=== PATIENT | female | born 1950 | race Caucasian/White ===

== ENCOUNTER 2019-10-28 08:11 | Day surgery (SDC) | payer MEDICARE, OTHER ==
[~2019-10-28] VITALS: Ht 165.1 cm; Wt 56.7 kg
[~2019-10-28 08:11] MED LIST: ALBUTEROL SULF8.5 GM INH; BUPROPION HCL100 M1 PO; BUPROPION HCL100 MG PO; CENTRUM SILVER1 EAC3 PO; CYCLOBENZAPRINE5 MG PO; FOSAMAX70 MG PO; IBUPROFEN200 M1 PO; LEVOTHYROXINE50 MCG PO; MELOXICAM7.5 MG PO; NAPROXEN500 MG PO; NORCO 5-325 TA1 EACH PO; OXYBUTYNIN CHLOR5 M1 PO; OXYBUTYNIN CHLOR5 MG PO; PERCOCET 5-3251 EACH PO; SUDAFED 12-HOU120 MG PO; TRAMADOL HCL50 MG PO; VALIUM5 MG PO; VITAMIN D32000 UNI1 PO
--- NOTE | 2019-10-28 10:28 | NUR ---
10/28/19 Tashia8 Dasia Oliveira 1024- PT ARRIVES TO PACU EASILY AROUSABLE TO VERBAL STIMULI. PT FALLS ASLEEP INSTANTLY WHEN NOT BEING TALKED TO. RESP EVEN AND UNLABORED. OXYGEN SAT HIGH 90'S TO 100% ON 3L VIA NC.
--- NOTE | 2019-10-29 08:11 | OR ---
[facility] [address], [place] [address] Signed DATE OF OPERATION: 10/28/2019 SURGEON: Loly Maradiaga MD PREOPERATIVE DIAGNOSES: 1. Personal history of hyperplastic polyps in 2013. 2. Diverticulosis. 3. Internal anal skin tags. 4. Maternal grandmother with colonic polyps. POSTOPERATIVE DIAGNOSES: 1. A 4 mm polyps at 8 and 28 cm. 2. Minimal sigmoid diverticulosis. 3. Multiple internal anal skin tags. PROCEDURE PERFORMED: Colonoscopy with hot biopsy. ESTIMATED BLOOD LOSS: None. INDICATIONS: Abena is a 69-year-old female, asked to see me for followup colonoscopy. Her maternal grandmother had colonic polyps removed. She had multiple hyperplastic polyps removed back in 2013. She is known to have diverticulosis along with several internal anal skin tags. She has no lower GI complaints. I gave Abena a pamphlet on colonoscopy. We looked at that together along with the risks and benefits. She also understands the need for IV conscious sedation. She had expressed understanding and wished to proceed. DESCRIPTION OF PROCEDURE: Abena was taken into our endoscopy suite and placed in the left lateral decubitus position. She was given IV sedation with 3 mg of Versed and 100 mcg of fentanyl. She also requested Xanax to be taken prior to coming to the hospital. A digital rectal exam was performed and I could feel the internal anal skin tags. She had good sphincter tone. No external hemorrhoids. The adult colonoscope was introduced and advanced all around into the cecum under direct visualization of camera. It took a little extra sedation and some abdominal compression, and rolling her on the table in the supine position or get the camera directly into the cecum itself. Her prep was good. We could easily see the appendiceal orifice and the ileocecal valve. The scope was slowly withdrawn. The above-mentioned polyps were easily removed with the help of hot biopsy Electronically Signed By: LOLY MARADIAGA MD 10/29/19 0811 PATIENT NAME: ABENA HOUSE OPERATIVE REPORT DATE OF : 46 REPORT #: [id number] PHYSICIAN: LOLY MARADIAGA MD PCP: DONNA HYATT MD REPORT IS CONFIDENTIAL AND NOT TO BE RELEASED WITHOUT AUTHORIZATION [facility] [address], [place] [address] Signed forceps. She does have sigmoid diverticulosis. They were minimal to moderate in size, minimal to moderate in number, and scattered about. Upon retroflexion of scope in the rectum, she does have several internal anal skin tags. After this, the gas was suctioned out and the colonoscope removed. Abena tolerated the procedure quite well. RECOMMENDATIONS: Abena will follow up in my office in 7 to 14 days to review her results. This may represent Abena's last colonoscopy. MD MIC Ferreira/ELIASL /[id number] cc: MD Loly Peterson MD Copies: DONNA HYATT MD, ANDREW L MD ~ Electronically Signed By: LOLY MARADIAGA MD 10/29/19 0811 PATIENT NAME: ABENA HOUSE OPERATIVE REPORT DATE OF : 46 REPORT #: [id number] PHYSICIAN: LOLY MARADIAGA MD PCP: DONNA HYATT MD REPORT IS CONFIDENTIAL AND NOT TO BE RELEASED WITHOUT AUTHORIZATION
--- NOTE | 2019-10-29 15:12 | PATH ---
[facility] [address], [place] [address] Signed SPECIMEN(S): A COLON POLYP AT 8 CM SPECIMEN(S): B COLON POLYP AT 28 CM SPECIMEN SOURCE: A. COLON POLYP AT 8 CM B. COLON POLYP AT 28 CM CLINICAL HISTORY: Chronic polyp. Post: Diverticulosis, polyps, internal skin tags. MICROSCOPIC DESCRIPTION: Histologic sections of all submitted blocks are examined by light microscopy. These findings, together with the gross examination, support the pathologic diagnosis. FINAL PATHOLOGIC DIAGNOSIS: A. Colon, polyp at 8 cm, polypectomy: - Hyperplastic polyp. - Negative for dysplasia or malignancy. B. Colon, polyp at 28 cm, polypectomy: - Fragments of colonic mucosa with focal hyperplastic mucosal changes. - Negative for dysplasia or malignancy. NAL:emb:C2NR GROSS DESCRIPTION: Two specimens are received in two containers, labeled "SG." A. The specimen, labeled "SG, colon polyp at 8 cm," is received in formalin and consists of a single 0.2 cm zarate-brown tissue fragment. Specimen is entirely submitted in cassette (A1). B. The specimen, labeled "SG, colon polyp at 28 cm," is received in formalin and consists of five, 0.2-0.3 cm zarate-brown tissue fragments. Specimen is entirely submitted in cassette (B1). AM (under the direct supervision of a pathologist) The Gross Description was prepared using a voice recognition system. The report was reviewed for accuracy; however, sound-alike word errors, addition and/or deletions may occur. If there is any question about this report, please contact Client Services. PERFORMING LABORATORY: The technical component was performed by [email or web address], [address] [place] [id number] (Check Writer: Caitlyn Fraser MD; CLIA# [id number]). Professional interpretation was performed by PATIENT NAME: NAFISA HOUSE PATHOLOGY DATE OF : 46 REPORT #: [id number] PHYSICIAN: [facility] PCP: DONNA HYATT MD REPORT IS CONFIDENTIAL AND NOT TO BE RELEASED WITHOUT AUTHORIZATION [facility] [address], [place] [address] Signed [facility], [facility], [address] [facility] [address] [place], [place] [address] (Check Writer: Wili Oconnor MD; CLIA# [id number]). Diagnostician: Tori Stahl MD Pathologist Electronically Signed 10/29/2019 Copies: ~ PATIENT NAME: NAFISA HOUSE PATHOLOGY DATE OF : 46 REPORT #: [id number] PHYSICIAN: [facility] PCP: DONNA HYATT MD REPORT IS CONFIDENTIAL AND NOT TO BE RELEASED WITHOUT AUTHORIZATION
== END 2019-10-28 11:15 | disposition home or self-care (01) ==
LOC: OPS 08:11 → DS 08:11 → OPS 09:45
PROVIDERS: Colon & Rectal Surgery
PROC: 0DBE8ZZ Excision of Large Intestine, Via Natural or Artificial Opening Endoscopic (ICD-10-PCS; principal; 2019-10-28 09:45)
DX: Z12.11 Encounter for screening for malignant neoplasm of colon (principal); K63.5 Polyp of colon; K57.30 Diverticulosis of large intestine without perforation or abscess without bleeding; K64.4 Residual hemorrhoidal skin tags; J45.909 Unspecified asthma, uncomplicated; M85.80 Other specified disorders of bone density and structure, unspecified site; G43.909 Migraine, unspecified, not intractable, without status migrainosus; F32.9 Major depressive disorder, single episode, unspecified; K21.9 Gastro-esophageal reflux disease without esophagitis; F17.210 Nicotine dependence, cigarettes, uncomplicated; Z86.010 Personal history of colon polyps; Z98.890 Other specified postprocedural states; Z87.01 Personal history of pneumonia (recurrent); Z83.71 Family history of colonic polyps; Z79.899 Other long term (current) drug therapy; Z88.5 Allergy status to narcotic agent; Z88.2 Allergy status to sulfonamides
CPT/HCPCS: 99153; G0500; J2250; J3010; J7121

== ENCOUNTER 2021-03-14 06:30 | Day surgery (SDC) | payer MEDICARE, OTHER ==
[~2021-03-14] VITALS: Ht 165.1 cm; Wt 54.5 kg
[~2021-03-14 06:30] MED LIST changes: +VESICARE10 MG PO
--- NOTE | 2021-03-14 06:50 | NUR ---
[facility] RAPID COVID TEST DONE PER ORDER. COVID TEST COLLECTED FROM BOTH NARES W/O ISSUE. PT TOLERATED WELL.
--- NOTE | 2021-03-14 07:02 | NUR ---
RT ALBERTINA IN PT ROOM PERFORMING RAPID COVID SWAB.
--- NOTE | 2021-03-14 09:59 | NUR ---
03/14/21 0959 Patsy Becerril 0949 PT ARRIVED TO PACU ON 10L VIA MASK, VSS. PT REACTIVE TO TACTILE STIMULI AND RN REORIENTS PT TO PACU. 0954 PT TRYING TO TALK TO RN, O2 REMOVED. PT DENIES PAIN AND NAUSEA. PT COUGHING OFF AND ON.
--- NOTE | 2021-03-14 10:25 | NUR ---
1018: PT ARRIVES BACK TO DS RM 3 FROM PACU AWAKE AND ALERT. PT DENIES ANY NAUSEA AND PROVIDED ICED WATER AND APPLE SAUCE PER REQUEST. PT STATES PAIN IN RLQ 2-3/10 AND TOLERABLE. DC CRITERIA EXPLAINED TO PT. CALL LIGHT WITHIN REACH.
[2021-03-14] MEDS ORDERED: OXYCODONE HCL5 MG PO (11:19)
--- NOTE | 2021-03-14 11:33 | NUR ---
1120: PT RESTING IN BED WITH EYES CLOSED, RESP EVEN AND UNLABORED. PT WAKES WITH ENTRANCE TO ROOM. RICHAR HUGGER IN PLACE ON WARM. PT STATES NO NAUSEA AND PROVIDED SECOND APPLE SAUCE. PT RATES PAIN 2-3/10 "WITH NO MOVEMENT." PT ENC TO USE CALL LIGHT WITH URGE TO VOID.
--- NOTE | 2021-03-14 12:49 | NUR ---
1225: PT UP TO BATHROOM WITH RN ASSIST, STEADY GAIT. PT ABLE TO VOID APPROX 500 MLS LIGHT YELLOW URINE WITH NO PROBLEM. PT BACK TO DS RM 3 AND PROVIDED PO PAIN MEDS FOR INCREASED PAIN WITH MOVEMENT. PT PROVIDED CRACKERS AND PEANUT BUTTER AND ICE PACK REFILLED. 1245: PT ROOMMATE/[facility] CALLS TO CHECK STATUS OF PT, PLANS TO COME AROUND 1330 TO PICK PT UP.
--- NOTE | 2021-03-14 13:20 | NUR ---
[id number]: PT DRESSES SELF AND OPENS CURTAIN WHEN FINISHED. THIS RN PRESENTS DC INSTRUCTIONS TO PT AND ANSWERS ALL QUESTIONS. PT AWARE OF PAIN PRESCRIPTION IN DC FOLDER. PT DC VIA WC FROM DS RM 3 TO ROOMMATE WAITING AT [facility] ENTRANCE TO HOME.
--- NOTE | 2021-03-15 06:19 | OR ---
[facility] [address] [place], [place] [address] Signed DATE OF OPERATION: 03/14/2021 SURGEON: Loly Maradiaga MD PREOPERATIVE DIAGNOSIS: Reducible right lower quadrant abdominal wall hernia. POSTOPERATIVE DIAGNOSIS: Reducible right indirect inguinal hernia. PROCEDURE: Right Robinson onlay mesh inguinal herniorrhaphy. ESTIMATED BLOOD LOSS: None. INDICATIONS: Abena is a 70-year-old female with a long history of abdominal surgeries and smoking. She has had other incisional hernias repaired. She had been to a laparoscopic-assisted vaginal hysterectomy many years ago. She presented with a right lower quadrant abdominal wall hernia. There was some consideration for a spigelian hernia. It seemed to be about midway between the inguinal canal and the umbilicus. She has been wearing a binder to help work around the yard. Generally, she can push the hernia back inside. She states sometimes it is very large and it gurgles and it makes her nauseated and vomit. Once she pushes it back inside, she feels much better and the pain is reduced. She finally went to her primary care provider. CT scan of the abdomen and pelvis was performed. There seemed to be a 15 mm hernia. It contained fat on the CT scan. It seemed to be quite low compared to the physical exam. 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 When we reduced it in the office and today in the preop area, we could hear the gurgling. Once again, it was very difficult to feel any specific fascial defect and again, we thought it might be more medial than the inguinal canal. We decided that it needed to be repaired. I had reviewed with Abena the nature of abdominal wall hernias. She is very familiar with hernia surgery and mesh, having gone through it previously. I gave her a brochure on hernias and we went through it together. She understands there is risk including, but not limited to bleeding, infection, scarring, change in contour of the skin, damage to bowel, infection of mesh requiring removal, recurrent hernias, and chronic pain. She had expressed understanding and wished to proceed. PROCEDURE NOTE: Electronically Signed By: LOLY MARADIAGA MD 03/15/21 0619 PATIENT NAME: ABENA HOUSE OPERATIVE REPORT DATE OF : 46 REPORT #: [id number] PHYSICIAN: LOLY MARADIAGA MD PCP: DONNA HYATT MD REPORT IS CONFIDENTIAL AND NOT TO BE RELEASED WITHOUT AUTHORIZATION [facility] [address], [place] [address] Signed I met with Abena in our preop area. Once again, we could not feel the hernia lying supine. We had her stand and we could see and feel the hernia. We could hear the gurgling and we reduced bowel once again. Again, we thought it was a little too high and too medial to be in the inguinal canal. We then marked the area appropriately. After this, Abena was taken into the operating room and placed in the supine position under general endotracheal tube anesthesia. She was given preoperative antibiotics along with subcutaneous heparin. SCDs were utilized. We utilized a transverse incision, given her findings on physical exam as well as the CT scan. We went a little lower than what we normally would for say a more traditional spigelian hernia. We carried this down to the tissue bluntly and with the cautery. We had to open the external oblique to find the hernia. We then discovered the hernia tract more lateral. After we completed our dissection, we realized we were at the deep ring. We could see the inferior epigastric artery and vein on the medial side of the hernia. We dissected out the full extent of the inguinal canal through that transverse incision. We dissected the hernia sac free and we opened that hernia sac. We could easily see into the abdomen and see the small bowel. We passed our finger through the hernia sac and everything around the hernia sac was completely free. We tied off the neck of the hernia sac with a 2-0 PDS pursestring suture. The distal portion of the hernia sac was amputated and passed off the field. The hernia sac was allowed to return through the deep ring into the abdomen. We closed the deep ring with a running #1 Prolene suture. We had to sacrifice the ilioinguinal nerve as it came by the deep ring in order to proceed with the repair. We used flat Prolene mesh and we cut the mesh to fit her groin as we would with any Robinson onlay repair. It was held in place medially and laterally with running 0 Prolene suture, starting at the pubic tubercle, all the way cephalad to the deep ring. This gave excellent coverage of the direct and indirect spaces. We then injected local anesthetic into the operative field. The wound was irrigated and suctioned out until clear. We closed the external oblique over that repair with a running 2-0 PDS suture. The Marion's fascia was reapproximated with a running 3-0 Monocryl suture. The dermis was reapproximated with interrupted 3-0 Monocryl sutures. The skin edges were reapproximated with a running 5-0 fast absorbing plain gut suture. Dry gauze and tape were then applied. Abena was awakened from her anesthesia. Her Burrows catheter was removed and she was taken into recovery room in stable condition. MD MIC Ferreira/MODL /[id number] Electronically Signed By: LOLY MARADIAGA MD 03/15/21 0619 PATIENT NAME: ABENA HOUSEBETH OPERATIVE REPORT DATE OF : 46 REPORT #: [id number] PHYSICIAN: LOLY MARADIAGA MD PCP: DONNA HYATT MD REPORT IS CONFIDENTIAL AND NOT TO BE RELEASED WITHOUT AUTHORIZATION [address] [address] Signed cc: Chart Filed Incomplete MD Dr. Elissa Ferreira Copies: CHART FILED INCOMPLETE LOLY MARADIAGA MD ~ Electronically Signed By: LOLY MARADIAGA MD 03/15/21 0619 PATIENT NAME: ABENA HOUSE MARIELLA OPERATIVE REPORT DATE OF : 46 REPORT #: [id number] PHYSICIAN: LOLY MARADIAGA MD PCP: DONNA HYATT MD REPORT IS CONFIDENTIAL AND NOT TO BE RELEASED WITHOUT AUTHORIZATION
== END 2021-03-14 13:30 | disposition home or self-care (01) ==
LOC: DS 06:30
PROVIDERS: ATTEND Colon & Rectal Surgery
PROC: 0YU50JZ Supplement Right Inguinal Region with Synthetic Substitute, Open Approach (ICD-10-PCS; principal; 2021-03-14 06:45)
DX: K40.90 Unilateral inguinal hernia, without obstruction or gangrene, not specified as recurrent (principal); J45.909 Unspecified asthma, uncomplicated; F17.210 Nicotine dependence, cigarettes, uncomplicated; E03.9 Hypothyroidism, unspecified; Z20.822 Contact with and (suspected) exposure to COVID-19; Z88.1 Allergy status to other antibiotic agents
CPT/HCPCS: 00830; C1781; J0330; J0690; J1100; J1644; J1885; J2250; J2405; J2704; J2765; J3010; J7121; U0003

== ENCOUNTER 2024-11-30 14:02 | Emergency (ER) | payer MEDICARE, OTHER ==
[~2024-11-30] VITALS: Ht 165.1 cm; Wt 68.9 kg
[~2024-11-30 14:02] MED LIST changes: +EUTHYROX75 MCG; +FLUOXETINE HCL20 MG PO; +INCRUSE ELLI62.5 MCG; +OXYCODONE HCL5 MG PO; +TOLTERODINE TART4 MG PO
[2024-11-30] MEDS ORDERED: fentaNYL citrate 100 MCG/2 ML VIAL IV ONE ×2 (14:15→15:45)
[2024-11-30] MEDS ORDERED: LIDOCAINE HCL 4% 1 EACH PATCH TD ONE (14:15)
[2024-11-30 14:18] LABS: BASOPHILS 0.4 % (0-2); EOSINOPHILS 0.9 % (0-6); HEMATOCRIT 38.6 % (35.0-50.0); HEMOGLOBIN 13.4 g/dL (12.0-18.0); LYMPHOCYTES 30.8 % (24-44); MCH 32.7 (27-36); MCHC 34.6 g/dl (30-36); MCV 94.7 fl (81-99); MONOCYTES 12.2 % (0-12); NEUTROPHILS 55.7 % (39-80); PLATELET COUNT 321 K/uL (140-440); RBC 4.08 M/ul (4.3-5.7)
[2024-11-30] MEDS ORDERED: ALBUTEROL/IPRATROPIUM 3 ML NEB INH ONE (14:30)
[2024-11-30 14:48] LABS: ALBUMIN 3.7 g/dL (3.4-5.0); ALBUMIN/GLOBULIN RATIO 1.06 (1.1-2.4); BILIRUBIN, TOTAL 0.4 mg/dL (0.2-1.0); BUN/CREATININE RATIO 12.69 (6.0-28.6); CALCIUM 9.1 mg/dL (8.5-10.1); CREATININE, SERUM 0.63 mg/dL (0.55-1.02); MAGNESIUM 2.1 mg/dL (1.8-2.4); PROTEIN, TOTAL 7.2 g/dL (6.4-8.2)
[2024-11-30] MEDS ORDERED: OXYCODONE HCL5 MG PO (16:03)
[2024-11-30] MEDS ORDERED: ONDANSETRON ODT8 MG PO (16:03)
[2024-11-30] MEDS ORDERED: LIDODERM1 EACH TOP (16:03)
[2024-11-30 16:15] VITALS: BP 134/88
[2024-11-30] MEDS ORDERED: LIDOCAINE PATCH REMOVAL 1 EA TD SCH (21:00)
--- NOTE | 2024-12-01 16:30 | EKG ---
[facility] [address] [facility] [place] [address] Signed Normal sinus rhythm Left axis deviation Pulmonary disease pattern Inferior infarct , age undetermined Abnormal ECG When compared with ECG of 09-OCT-2023 22:38, premature ventricular complexes are no longer present Inferior infarct is now present Nonspecific T wave abnormality no longer evident in Inferior leads Nonspecific T wave abnormality no longer evident in Lateral leads Confirmed by Carlyle Hood MD () on 12/01/2024 4:30:35 PM Electronically Signed By: CARLYLE HOOD MD 12/01/24 1630 PATIENT NAME: NAFISA HOUSE Electrocardiogram DATE OF : 46 PHYSICIAN: CARLYLE HOOD MD REPORT #: [id number] REPORT IS CONFIDENTIAL AND NOT TO BE RELEASED WITHOUT AUTHORIZATION
== END 2024-11-30 16:17 | disposition home or self-care (01) ==
LOC: ED 14:02
PROVIDERS: Emergency Medicine
DX: R07.89 Other chest pain (principal); J44.89 Other specified chronic obstructive pulmonary disease; E03.9 Hypothyroidism, unspecified; F17.200 Nicotine dependence, unspecified, uncomplicated; Z88.2 Allergy status to sulfonamides; Z88.5 Allergy status to narcotic agent; Z79.890 Hormone replacement therapy; Z79.899 Other long term (current) drug therapy
CPT/HCPCS: 36415; 71260; 80053; 83735; 83880; 84484; 85025; 93005; 93010; 94640; 99285-25; A9270; J3010; Q9967